=== PATIENT | female | born 1970 | race Caucasian/White ===

== ENCOUNTER → 2021-11-06 14:25 | Outpatient (REF) | payer OTHER, SELFPAY | LOC: ANHLAB 14:25 | PROVIDERS: Visit Provider Nurse Practitioner | DX: C44.622 Squamous cell carcinoma of skin of right upper limb, including shoulder (principal) | CPT/HCPCS: 88305 ==

== ENCOUNTER → 2021-12-11 09:25 | Outpatient (REF) | payer OTHER, SELFPAY | LOC: ANHLAB 09:25 | PROVIDERS: Visit Provider Nurse Practitioner | DX: C44.622 Squamous cell carcinoma of skin of right upper limb, including shoulder (principal) | CPT/HCPCS: 88305; 88331 ==